=== PATIENT | female | born 1980 | race Caucasian/White ===

== ENCOUNTER 2017-03-24 18:12 | Emergency (ER) | payer OTHER ==
[2017-03-24 18:19] VITALS: RESP 18
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
[2017-03-24] MEDS ORDERED: IBUPROFEN 200 MG TAB PO ONE ×2 (19:32→19:40)
[2017-03-24] MEDS ORDERED: METHOCARBAMOL 750 MG TAB PO ONE (19:46)
[2017-03-24 20:06] VITALS: BP 133/78; PULSE 82; TEMP 97.9; O2SAT 96
== END 2017-03-24 20:05 | disposition home or self-care (01) ==
DX: S16.1XXA Strain of muscle, fascia and tendon at neck level, initial encounter (principal); V49.50XA Passenger injured in collision with unspecified motor vehicles in traffic accident, initial encounter; Y92.410 Unspecified street and highway as the place of occurrence of the external cause

== ENCOUNTER 2017-11-30 12:56 | Emergency (ER) | payer OTHER ==
[2017-11-30] MEDS ORDERED: ONDANSETRON 4 MG/2 ML VIAL IVP ONE (13:01)
[2017-11-30] MEDS ORDERED: NS 500 ML IV ONE (13:01)
[2017-11-30] MEDS ORDERED: KETOROLAC 30 MG/1 ML SDV IVP ONE (13:02)
--- NOTE | 2017-11-30 13:06 | EDPHY ---
H & P Time Seen by Provider: 11/30/17 13:01 HPI/ROS: HPI Right lower chest pain. History of pleurisy. 37-year-old female by ambulance from work. This patient has a history of pleurisy. She reports that at 7:30 a.m. This morning she developed sharp stabbing pain right anterior lower chest at the mid costal margin. She reports the pain is worse with movement and deep breathing. She reports the pain is similar to episodes of pleurisy that she has had in the past. She reports the pain has persisted and worsened through the day. She had an episode of diaphoresis associated with the pain about an hour ago. This is what prompted her to call EMS and come to the emergency department by ambulance from work. ROS: Constitutional: No fever, no chills. No weakness. Eyes: No discharge. No changes in vision. ENT: No sore throat. No nasal congestion or rhinorrhea. Respiratory: No cough. As above. Cardiac: As above, no palpitations. Gastrointestinal: No abdominal pain, no vomiting, no diarrhea. Genitourinary: No hematuria. No dysuria or increased frequency with urination. Musculoskeletal: No back pain. No neck pain. No myalgias or arthralgias. Skin: No rashes. Neurological: No headache. No focal weakness or altered sensation. Past medical history: As above. She denies being on any prescription medications. Social history: Nonsmoker. She is here by herself. No alcohol. Physical Exam: General Appearance: Alert, she appears anxious and uncomfortable. This patient is responding to questions appropriately and in full sentences. This patient appears well-hydrated and well-nourished. Eyes: Pupils equal and round no pallor or injection. No lid edema, erythema or injection. Respiratory: There are no retractions, lungs are clear to auscultation with good air movement bilaterally. Cardiovascular: Regular rate and rhythm. No murmur. Gastrointestinal: Abdomen is soft and nontender, no masses, bowel sounds normal. No focal tenderness at McBurney's point. No Smith sign. Neurological: Motor sensory function is grossly intact. Cranial nerves are normal. Gait is normal. Skin: Warm and dry, no rashes. Musculoskeletal: Neck is supple and nontender. Extremities are symmetrical. All joints range without pain or impingement. Psychiatric: No agitation. No depression. Database: EKG: EKG time is 1:17 p.m.; EKG shows a narrow complex normal sinus rhythm with a ventricular rate of 57. The NH, QRS, QT intervals are within normal limits. There are no ST-T wave changes indicative of ischemic or injury pattern. No evidence of right heart strain. Interpreted by me. Imaging: Chest x-ray PA and lateral; the cardiac mediastinal silhouette is unremarkable. No evidence of infiltrate or pneumothorax. No acute cardiopulmonary disease process noted. Interpreted by me. Right upper quadrant ultrasound: Normal right upper quadrant ultrasound. The gallbladder in ductal system is unremarkable. Results were discussed with staff radiologist Dr. Crow Canales. Procedures: Emergency department course: IV placed. Vital signs reviewed. She has no contraindications to NSAIDs. She was started on IV normal saline with 500 cc to be given over the next hour. She was given 4 mg of IV Zofran and 30 mg of IV Toradol for pain and initially. EKG obtained and reviewed by myself. 1:55 p.m., patient very anxious. She states that she has been under a lot of stress secondary to a custody hall with her children's father. She is not driving. She was given 5 mg of IV Valium. 2:55 p.m., patient re-evaluated. Feeling better at this time. Denies any significant pain. Results of her diagnostic workup discussed with her. She feels comfortable going home and I feel she is safe for discharge. She will follow up with her primary care physician for re-evaluation tomorrow. Return to emergency department precautions were thoroughly reviewed with her. All of her questions were answered. She was discharged in good condition. Differential Diagnosis: The differential diagnosis on this patient includes but is not limited to pleurisy, musculoskeletal chest pain, biliary colic, cholecystitis, pulmonary embolism, pneumonia, pneumothorax, acute coronary syndrome. This represents a partial list of diagnoses considered. These considerations are based on history , physical exam, past history, reassessment and diagnostic testing. Smoking Status: Never smoked Constitutional: Initial Vital Signs Temperature (C) 36.7 C 11/30/17 13:05 Heart Rate 68 11/30/17 13:05 Respiratory Rate 24 H 11/30/17 13:05 Blood Pressure 116/79 11/30/17 13:05 O2 Sat (%) 99 11/30/17 13:05 O2 Delivery Mode Room Air Allergies/Adverse Reactions: Penicillins Allergy (Severe, Verified 03/24/17 18:15) Hives cephalexin monohydrate [From Keflex] Allergy (Verified 03/24/17 18:15) clindamycin Allergy (Verified 03/24/17 18:15) oxycodone [From Percocet] Allergy (Verified 03/24/17 18:16) prochlorperazine edisylate [From Compazine] Allergy (Verified 03/24/17 18:15) prochlorperazine maleate [From Compazine] Allergy (Verified 03/24/17 18:15) promethazine [From Phenergan] Allergy (Verified 11/30/17 13:05) Home Medications: Medication Instructions Recorded NK [No Known Home Meds] 11/30/17 Medical Decision Making - Diagnostics Imaging Results: Imaging Impressions Abdomen Ultrasound 11/30/17 13:02 Impression: Normal RUQ ultrasound. Chest X-Ray 11/30/17 13:02 Impression: Mild peribronchial thickening suggesting airways disease/bronchitis. - Data Points Laboratory Results: Laboratory Results 11/30/17 12:50 11/30/17 12:50 11/30/17 11/30/17 11/30/17 12:50 12:50 12:50 WBC 8.37 10^3/uL 10^3/uL (3.80-9.50) RBC 4.82 10^6/uL 10^6/uL (4.18-5.33) Hgb 14.6 g/dL g/dL (12.6-16.3) Hct 42.2 % % (38.0-47.0) MCV 87.6 fL fL (81.5-99.8) MCH 30.3 pg pg (27.9-34.1) MCHC 34.6 g/dL g/dL (32.4-36.7) RDW 12.6 % % (11.5-15.2) Plt Count 249 10^3/uL 10^3/uL (150-400) MPV 9.5 fL fL (8.7-11.7) Neut % (Auto) 66.7 % % (39.3-74.2) Lymph % (Auto) 25.0 % % (15.0-45.0) [place] % (Auto) 6.5 % % (4.5-13.0) Eos % (Auto) 1.1 % % (0.6-7.6) Baso % (Auto) 0.5 % % (0.3-1.7) Nucleat RBC Rel Count 0.0 % % (0.0-0.2) Absolute Neuts (auto) 5.59 10^3/uL 10^3/uL (1.70-6.50) Absolute Lymphs (auto) 2.09 10^3/uL 10^3/uL (1.00-3.00) Absolute Monos (auto) 0.54 10^3/uL 10^3/uL (0.30-0.80) Absolute Eos (auto) 0.09 10^3/uL 10^3/uL (0.03-0.40) Absolute Basos (auto) 0.04 10^3/uL 10^3/uL (0.02-0.10) Absolute Nucleated RBC 0.00 10^3/uL 10^3/uL (0-0.01) Immature Gran % 0.2 % % (0.0-1.1) Immature Gran # 0.02 10^3/uL 10^3/uL (0.00-0.10) PT 12.8 SEC SEC (12.0-15.0) INR 0.94 (0.83-1.16) APTT 29.2 SEC SEC (23.0-38.0) D-Dimer < 0.27 ug/mLFEU ug/mLFEU (0.00-0.50) Sodium 147 mEq/L H mEq/L (135-145) Potassium 4.3 mEq/L mEq/L (3.5-5.2) Chloride 110 mEq/L mEq/L (97-110) Carbon Dioxide 24 mEq/l mEq/l (22-31) Anion Gap 13 mEq/L mEq/L (8-16) BUN 16 mg/dL mg/dL (7-23) Creatinine 0.8 mg/dL mg/dL (0.6-1.0) Estimated GFR > 60 Glucose 81 mg/dL mg/dL (70-100) Calcium 9.6 mg/dL mg/dL (8.5-10.4) Total Bilirubin 0.6 mg/dL mg/dL (0.1-1.4) Conjugated Bilirubin 0.3 mg/dL mg/dL (0.0-0.5) Unconjugated Bilirubin 0.3 mg/dL mg/dL (0.0-1.1) AST 23 IU/L IU/L (14-46) ALT 36 IU/L IU/L (9-52) Alkaline Phosphatase 51 IU/L IU/L (38-126) Troponin I < 0.012 ng/mL ng/mL (0.000-0.034) Total Protein 7.4 g/dL g/dL (6.3-8.2) Albumin 4.4 g/dL g/dL (3.5-5.0) Lipase 83 IU/L IU/L (23-300) Medications Given: Discontinued Medications Diazepam (Valium) 5 mg IVP EDNOW ONE Stop: 11/30/17 13:43 Last Admin: 11/30/17 13:43 Dose: 5 mg Sodium Chloride (Ns) 500 mls @ 1,000 mls/hr IV EDNOW ONE PRN Reason: Protocol Stop: 11/30/17 13:30 Last Admin: 11/30/17 13:18 Dose: 500 mls Ketorolac Tromethamine (Toradol) 30 mg IVP EDNOW ONE Stop: 11/30/17 13:03 Last Admin: 11/30/17 13:16 Dose: 30 mg Ondansetron HCl (Zofran) 4 mg IVP EDNOW ONE Stop: 11/30/17 13:02 Last Admin: 11/30/17 13:17 Dose: 4 mg Departure - Departure Disposition: Home, Routine, Self-Care Clinical Impression: Pleurisy, Chest wall pain Condition: Good Instructions: Pleurisy (ED) Additional Instructions: Read and follow provided instructions. Follow-up with your primary care physician tomorrow as discussed for re- evaluation. Ibuprofen dosin mg every 6 hours with meals for the next 3 days only. Take only as needed for pain. Return to the emergency department for worsening pain, difficulty breathing, fever or other serious concerns. Referrals: Patient,NotPresent [Unknown] - As per Instructions
[2017-11-30 13:16] LABS: PLATELET COUNT 249 10^3/uL (150-400)
--- NOTE | 2017-11-30 13:18 | CPEKG ---
Heart Rate: 57 RR Interval: 1053 P-R Interval: 176 QRSD Interval: 84 QT Interval: 416 QTC Interval: 405 P [place]: 0 QRS [place]: 9 T Wave [place]: 29 EKG Severity - NORMAL ECG - EKG Impression: SINUS RHYTHM Electronically Signed By: Chetna Cohen 30-Nov-2017 20:52:00
[2017-11-30 13:28] LABS: INR 0.94 (0.83-1.16); PROTIME(PATIENT) 12.8 SEC (12.0-15.0)
[2017-11-30] MEDS ORDERED: DIAZEPAM 5 MG/ML 1 ML SYR ONE (13:41)
[2017-11-30] MEDS ORDERED: DIAZEPAM 5 MG/ML 1 ML SYR IVP ONE (13:42)
[2017-11-30 15:09] VITALS: BP 122/61; PULSE 62; RESP 18; TEMP 97.9; O2SAT 97
== END 2017-11-30 15:08 | disposition home or self-care (01) ==
LOC: EDUNIT#
DX: R09.1 Pleurisy (principal); E86.9 Volume depletion, unspecified
CPT/HCPCS: 96374; J1885; J2405; J3360